=== PATIENT | male | born 2005 | race Caucasian/White ===

== ENCOUNTER 2023-12-26 15:25 | Inpatient (IN) ==
[2023-12-26 19:25] LABS: POC Urine Bilirubin Negative (Negative); POC Urine Blood 250 (Negative); POC Urine Glucose Normal (Normal); POC Urine Ketones Negative (Negative); POC Urine Leukocytes Negative (Negative); POC Urine Nitrite Negative (Negative); POC Urine Protein Trace (Negative); POC Urine Urobilinogen Normal (Normal); POC Urine pH 5 (4.5-7.5)
[2023-12-26 19:36] LABS: Appearance Urine Clear (Clear); Bacteria Urine Automated Negative (Negative); Bilirubin Urine Negative (Negative); Blood Urine 3+ (Negative); Color Urine Orange; Glucose Urine UA Negative (Negative); Ketones Urine Negative (Negative); Leukocyte Esterase Urine Negative (Negative); Nitrite Urine Negative (Negative); Protein Urine 2+ (Negative); RBC Urine Automated 0-4 /hpf (0-4); Specific Gravity Urine 1.014 (1.000-1.030); Urobilinogen Urine Negative (Negative)
--- NOTE | 2023-12-26 19:53 | Emergency Department Note ---
History of Present Illness General Chief complaint: Urinary Symptoms Stated complaint: BLOOD IN URINE Time Seen by Provider: 12/26/23 19:49 History of Present Illness NAME: BINTA KELLY AGE: 18 SEX: M : 2005 ARRIVES VIA: Walk-In INFORMANT: Patient ED PROVIDER(S): ZURI Masterson, Sumeet Diamond MD The patient is a well-appearing 18-year-old male who arrives to the emergency department for evaluation of tea-colored urine. The patient reports he began to notice the discoloration of his urine on Tuesday. He reports that has happened every time he has urinated since then. He states he recently started going to the gym, and states that he was researching symptoms and had hoped it would pass. He denies any pain with urination, he denies any abdominal pain, flank pain, fever, chest pain, shortness of breath, or any other concerning signs or symptoms. He denies use of anticoagulants, bleeding or clotting disorders. Home Medications Medication Instructions Recorded Confirmed Type cholecalciferol (vitamin D3) 50 50 mcg PO HS 12/26/23 12/26/23 History mcg (2,000 unit) tablet ferrous sulfate 325 mg (65 mg 325 mg PO HS 12/26/23 12/26/23 History iron) tablet (iron) Allergies Allergy/AdvReac Type Severity Reaction Status Date / Time peanut Allergy Severe Anaphylaxis Unverified 12/26/23 20:58 mold Allergy Watery Eye Unverified 12/26/23 20:58 pollen extracts Allergy Watery Eye Unverified 12/26/23 20:58 Past Med/Surg History Social History Smoking Status: Never smoker Hx Alcohol Use: No Hx Substance Use: No Preferred Language: [place]guill[place] Communication Ability: Effective Molder Vacuum Required: No Current Living Situation: Other Current Living Situation Comment: with roommates Feels Safe at Home: Yes Assistive Devices: None Physical Exam Vital Signs Vital Signs - 24 hr 12/26/23 15:53 12/26/23 22:16 Temperature 36.7 C Temperature Source Temporal Artery Scan Pulse Rate 88 Pulse Rate [Apical] 67 Pulse Rhythm Regular Pulse Strength Normal Respiratory Rate 18 20 Respiratory Effort / Characteristics Non-Labored Respiratory Depth Normal Respiratory Pattern Regular Blood Pressure 150/97 H Blood Pressure [Left Arm] 138/77 Blood Pressure Mean 114 Blood Pressure Mean [Left Arm] 97 Pulse Oximetry 97 100 Oxygen Delivery Method Room Air Room Air Sepsis Recent Fever Within 48 Hours No Sepsis New/Unexplained Change in Mental Status No Sepsis Action Taken by Nursing No Action Required VITALS: Vitals are noted on the nurse's note and reviewed by myself. Vital signs stable. GENERAL: 18-year-old male, in no acute distress, nondiaphoretic, well-developed well-nourished. SKIN: The skin was without rashes, erythema, edema, or bruising. HEAD: Normocephalic atraumatic. HEART: Regular rate and rhythm without murmurs gallops or rubs. LUNGS: Clear to auscultation bilaterally without wheezes, rales or rhonchi. No retractions or accessory muscle use. ABDOMEN: Positive bowel sounds x 4. Soft, nontender, without masses or organomegaly. Melgoza sign negative. No guarding or rebound tenderness. MUSCULOSKELETAL: No muscle atrophy, erythema, or edema noted. Full range of motion without joint tenderness in all extremities. No tenderness to palpation. Normal gait. Strength 5/5 throughout. NEURO: Patient was alert and oriented to person place and time. No focal neurological deficits. Course Administered Medications Magnesium Sulfate/Dextrose (Magnesium Sulfate / D5w) 1 gm in 100 mls @ 50 mls/hr IV Q2H [facility] Stop: 12/27/23 15:44 Last Admin: 12/27/23 12:14 Dose: 50 mls/hr Documented By: Infusion: 12/27/23 12:14 Dose: Infused Documented By: Admin: 12/27/23 12:12 Dose: 50 mls/hr Documented By: Infusion: 12/27/23 10:29 Dose: Infused Documented By: Admin: 12/27/23 08:29 Dose: 50 mls/hr Documented By: Infusion: 12/27/23 08:02 Dose: Infused Documented By: Admin: 12/27/23 06:02 Dose: 50 mls/hr Documented By: KASSI Lactated Ringer's (Lr) 1,000 mls @ 200 mls/hr IV .Q5H [facility] Stop: 01/26/24 07:29 Last Admin: 12/27/23 08:29 Dose: 200 mls/hr Documented By: LEW Discontinued Medications Sodium Chloride (Nss) 1,000 mls @ 999 mls/hr IV .Q1H1M ONE Stop: 12/26/23 20:53 Last Infusion: 12/26/23 21:25 Dose: Infused Documented By: Admin: 12/26/23 20:05 Dose: 999 mls/hr Documented By: NIGHAT Sodium Chloride (Nss) 1,000 mls @ 999 mls/hr IV .Q1H1M ONE Stop: 12/26/23 22:22 Last Infusion: 12/26/23 22:33 Dose: Infused Documented By: Admin: 12/26/23 21:28 Dose: 999 mls/hr Documented By: ROSALINDA Sodium Chloride (Nss) 1,000 mls @ 999 mls/hr IV .Q1H1M [facility] Stop: 12/26/23 23:06 Last Infusion: 12/26/23 23:51 Dose: Infused Documented By: Admin: 12/26/23 22:17 Dose: 999 mls/hr Documented By: ROSALINDA Sodium Chloride (Nss) 1,000 mls @ 150 mls/hr IV .Q6H40M [facility] Stop: 12/27/23 12:25 Last Infusion: 12/27/23 07:05 Dose: Infused Documented By: Infusion: 12/27/23 06:42 Dose: 0 mls/hr Documented By: Admin: 12/27/23 00:26 Dose: 150 mls/hr Documented By: FRANTZ Potassium Chloride/Sodium Chloride (Normal Saline W/20 Meq Kcl) 20 meq in 1,000 mls @ 150 mls/hr IV .Q6H40M [facility]; Protocol Stop: 01/26/24 05:29 Last Infusion: 12/27/23 09:32 Dose: Infused Documented By: Admin: 12/27/23 06:02 Dose: 150 mls/hr Documented By: KASSI Pantoprazole Sodium (Pantoprazole 40 Mg Tab) 40 mg PO NOW STA Stop: 12/26/23 23:39 Last Admin: 12/27/23 00:26 Dose: 40 mg Documented By: FRANTZ Medical Decision Making Differential Diagnosis Hematuria, dehydration, rhabdomyolysis, cystitis, anticoagulant use, as well as other pathologies Medical Records Attestation: I reviewed the patient's medical records. Home Medications Current Medication List: was personally reviewed by me Laboratory Data Attestation: I reviewed the patient's lab results. Urine shows 2+ protein, 3+ blood, negative urobilinogen. CPK >100,000, transaminitis. 12/27/23 07:05 12/27/23 07:05 Lab Results 12/26/23 12/26/23 Range/Units 19:18 20:02 WBC 5.77 (4.8-10.8) K/ul RBC 5.21 (4.70-6.10) M/uL Hgb 14.6 (14.0-18.0) g/dl Hct 44.3 (42.0-52.0) % MCV 85.0 (80.0-100.0) fL MCH 28.0 (25.0-34.0) pg MCHC 33.0 (32.0-36.0) g/dL RDW Std Deviation 38.1 (36.4-46.3) fL RDW Coeff of Karen 12.4 (11.5-14.5) % Plt Count 177 (130-400) K/uL MPV 12.6 H (9.4-12.4) fL Immature Gran % (Auto) 0.3 % Neut % (Auto) 58.2 % Lymph % (Auto) 26.7 % [place] % (Auto) 9.5 % Eos % (Auto) 5.0 % Baso % (Auto) 0.3 % Neut # (Auto) 3.35 (1.40-6.50) K/uL Lymph # (Auto) 1.54 (1.20-3.40) K/uL [place] # (Auto) 0.55 (0.11-0.59) K/uL Eos # (Auto) 0.29 (0.00-0.50) K/uL Baso # (Auto) 0.02 (0.00-0.20) K/uL Immature Gran # (Auto) 0.02 (0.01-0.20) K/uL Sodium 139 (136-145) mmol/L Potassium 3.5 (3.5-5.1) mmol/L Chloride 103 (98-107) mmol/L Carbon Dioxide 32 (21-32) mmol/L Anion Gap 4 (3-11) BUN 10 (6-23) mg/dl Creatinine 0.92 (0.6-1.4) mg/dl Est Cr Clr Drug Dosing 146.6 ml/min Est GFR ( Amer) 138.3 ml/min Est GFR (Non-Af Amer) 119.3 ml/min BUN/Creatinine Ratio 10.9 (10-20) Glucose 125 H (70-99(Fasting)) mg/dl Calcium 9.4 (8.6-10.3) mg/dl Magnesium < 0.5 L* (1.7-2.4) mg/dl Total Bilirubin 1.1 H (0.2-1.0) mg/dl AST 2432 H (13-39) U/L ALT 423 H (7-52) U/L Alkaline Phosphatase 53 (34-104) U/L Total Creatine Kinase > 435075 H (30-223) U/L Total Protein 7.6 (6.0-8.3) gm/dl Albumin 4.5 (3.4-5.0) gm/dl Globulin 3.1 (2.5-4.0) gm/dl Albumin/Globulin Ratio 1.5 (0.9-2) Urine Color [place] Urine Appearance Clear (Clear) Urine pH 6.0 (4.5-7.5) POC Urine pH 5 (4.5-7.5) Ur Specific [place] 1.014 (1.000-1.030) Urine Protein 2+ H (Negative) POC Urine Protein Trace H (Negative) Urine Glucose (UA) Negative (Negative) POC Ur Glucose (UA) Normal (Normal) Urine Ketones Negative (Negative) POC Urine Ketones Negative (Negative) Urine Blood 3+ H (Negative) POC Urine Blood 250 H (Negative) Urine Nitrite Negative (Negative) POC Urine Nitrite Negative (Negative) Urine Bilirubin Negative (Negative) POC Urine Bilirubin Negative (Negative) Urine Urobilinogen Negative (Negative) POC Urine Urobilinogen Normal (Normal) Ur Leukocyte Esterase Negative (Negative) POC U Leukocyte Esteras Negative (Negative) Urine WBC (Auto) 1-5 (0-5) /hpf Urine RBC (Auto) 0-4 (0-4) /hpf U Hyaline Cast (Auto) 1-5 (0-5) /lpf U Epithel Cells (Auto) 10-20 H (0-5) /lpf Urine Bacteria (Auto) Negative (Negative) Urine Opiates Screen Neg (Neg) Ur Methadone, Qual Neg (Neg) Urine Barbiturates Neg (Neg) Ur Phencyclidine (PCP) Neg (Neg) U Amphetamin/Meth Scrn Neg (Neg) MDMA (Ecstasy) Screen Neg (Neg) U Benzodiazepines Scrn Neg (Neg) Ur Cocaine Metabolite Neg (Neg) U Marijuana (THC) Screen Neg (Neg) MDM Narrative The patient is a well-appearing 18-year-old male who arrives to the emergency department with his family for the above-stated complaint. Urine was obtained in triage which showed hematuria. Upon assessment patient appears well, however due to the hematuria a saline lock was placed, CBC, CMP, CPK were obtained to rule out rhabdomyolysis. CBC was reassuring, CMP shows transaminitis, CPK was >100,000. The patient was provided with 2 L of normal saline, case management was advised of the patient requiring admission. [facility] team took over the care of the patient at this time. Impression & Plan Rhabdomyolysis Discharge Plan Visit Data Chief Complaint: Urinary Symptoms Stated Complaint: BLOOD IN URINE ED Provider: Sumeet Diamond ED Midlevel Provider: Kya Abraham Discharge Problem: Rhabdomyolysis Patient Disposition: Admitted As Inpatient Discharge Instructions Interventions: ED Discharge Assessment Last Done: 12/26/23 23:38 Discharge Problem: Rhabdomyolysis Qualifiers: Rhabdomyolysis type: non-traumatic Qualified Code(s): M62.82 - Rhabdomyolysis
[2023-12-26] MEDS: SODIUM CHLORIDE 0.9% 1,000 ML IV ONE ×2 (20:05→21:28)
[2023-12-26 20:22] LABS: Basophils # (auto) 0.02 K/uL (0.00-0.20); Basophils % (auto) 0.3 %; Eosinophils # (auto) 0.29 K/uL (0.00-0.50); Hematocrit (blood only) 44.3 % (42.0-52.0); Hemoglobin 14.6 g/dl (14.0-18.0); Immature Granulocytes # (auto) 0.02 K/uL (0.01-0.20); Immature Granulocytes % (auto) 0.3 %; Lymphocytes # (auto) 1.54 K/uL (1.20-3.40); Lymphocytes % (auto) 26.7 %; Mean Platelet Volume 12.6 fL (9.4-12.4); Monocytes # (auto) 0.55 K/uL (0.11-0.59); Monocytes % (auto) 9.5 %; Neutrophils # (auto) 3.35 K/uL (1.40-6.50); Neutrophils % (auto) 58.2 %; Platelet Count 177 K/uL (130-400); RDW Coefficient of Variation 12.4 % (11.5-14.5); RDW Standard Deviation 38.1 fL (36.4-46.3); Red Blood Count 5.21 M/uL (4.70-6.10); White Blood Count 5.77 K/ul (4.8-10.8)
[2023-12-26 20:40] LABS: Anion Gap 4 (3-11); BUN Creatinine Ratio 10.9 (10-20); Blood Urea Nitrogen 10 mg/dl (6-23); Calcium 9.4 mg/dl (8.6-10.3); Carbon Dioxide 32 mmol/L (21-32); Chloride 103 mmol/L (98-107); Creatinine Clr Calc Pharmacy 146.6 ml/min; Est GFR (African American) 138.3 ml/min; Est GFR (Non-African American) 119.3 ml/min; Glucose 125 mg/dl (70-99(Fasting)); Potassium 3.5 mmol/L (3.5-5.1); Sodium 139 mmol/L (136-145)
[2023-12-26 20:56] LABS: Alanine Aminotransferase 423 U/L (7-52); Albumin Globulin Ratio 1.5 (0.9-2); Albumin Level 4.5 gm/dl (3.4-5.0); Alkaline Phosphatase 53 U/L (34-104); Aspartate Aminotransferase 2432 U/L (13-39); Bilirubin,Total 1.1 mg/dl (0.2-1.0); Globulin 3.1 gm/dl (2.5-4.0); Total Protein 7.6 gm/dl (6.0-8.3)
[2023-12-26 21:41] LABS: Creatine Kinase > 100000 U/L (30-223)
[2023-12-26] MEDS: SODIUM CHLORIDE 0.9% 1,000 ML IV SCH (22:17)
--- NOTE | 2023-12-26 23:04 | History & Physical Report ---
Date of Service December 26, 2023 Assessment & Plan (1) Rhabdomyolysis: (2) GERD (gastroesophageal reflux disease): (3) Asthma: Plan 18 year old male with PMH of GERD and Asthma here after having tea-colored urine Rhabdomyolysis Strenuous exercises since Tuesday. Myalgias, tea colored urine Admit to Med/Surg CK>100,000 Cr: 0.92 Bilirubin 1.1, AST: 2432, ALT: 423 Denied any alcohol or substance abuse s/p 3 L of NSS in ER NSS 150 ml/hr Urine toxicology Hepatitis panel ordered Mag ordered Coagulation panel ordered CMP am CK AM Continue aggressive hydration GERD Protonix 40 mg daily Code: full code DVT: Low risk Dispo: Med/Surg Diet: Regular History of Present Illness Primary Care Provider: [facility] [employer] 18 year old male with PMH of GERD and Asthma, here after 2 days of tea-colored urine. He noticed the discoloration on Tuesday. He states that started at the gym on Tuesday, he does refers that might had been an strenuous workout. He also refers taking only protein powder on that day. He denied taking any other supplements as pre workout or creatine. He only takes iron and multivitamin. He also refers myalgias, that at first he attributed it to the exercise but by today it was getting worse. Denies any pain with urination, abdominal pain, flank pain, fevers, chest pain, SOB, or any other symptoms. He is adopted, only known PMH is colon cancer. Denied any alcohol use, smoking or any recreational drugs. ED course: Received 3 L of NSS. CK found >100,000. No electrolytes ab normalities. Creatinine at 0.92. Total bilirubin 1.1, AST 2432, ALT 423. UA with no signs of infection, POC urine blood, urine protein. Stable V/S Allergies Allergy/AdvReac Type Severity Reaction Status Date / Time peanut Allergy Severe Anaphylaxis Unverified 12/26/23 20:58 mold Allergy Watery Eye Unverified 12/26/23 20:58 pollen extracts Allergy Watery Eye Unverified 12/26/23 20:58 Home Medications Medication Instructions Recorded Confirmed Type cholecalciferol (vitamin D3) 50 50 mcg PO HS 12/26/23 12/26/23 History mcg (2,000 unit) tablet ferrous sulfate 325 mg (65 mg 325 mg PO HS 12/26/23 12/26/23 History iron) tablet (iron) Past Med/Surg History Social History Smoking Status: Never smoker Preferred Language: [place] Leonean Feels Safe at Home: Yes Review of Systems Review of Systems: All systems reviewed & are unremarkable except as noted in HPI & below Physical Exam Constitutional: WD/WN, vitals as above Respiratory: normal respiratory effort, lungs clear to auscultation Cardiovascular: RRR, no murmur, no edema Gastrointestinal (Abdomen): normal bowel sounds, soft, nontender, no hepatosplenomegaly Musculoskeletal: no cyanosis or clubbing, extremities motor strength 5/5 Results & Data Results & Data Vital Signs (Past 12 Hours) Vital Signs Temp Pulse Pulse Resp BP BP Pulse Ox 12/26/23 22:16 67 20 138/77 100 12/26/23 15:53 36.7 C 88 18 150/97 H 97 O2 Del Method 12/26/23 22:16 Room Air 12/26/23 15:53 Room Air Code Status & VTE Plan VTE Prophylaxis Plan VTE Prophylaxis will be ordered: Yes Supervising Physician Co-Signing Physician Notes Attending addendum: I have physically seen this patient, have supervised the medical residents activities, and agree with the H&P unless as otherwise noted. Assessment and Plan: Rhabdomyolysis- CK greater than 100,000 AST 2432 ALT 423 INR 1.0 Patient reports having taken a protein supplement prior to beginning workout 5 days ago Denies any alcohol or substance abuse Status post 3 L normal saline bolus in the ED Continue NSS + KCl 20 mEq's at 150 MLS per hour Urine drug screen is negative Acute hepatitis panel ordered and pending No tick bite history Daily CBC with differential,chemistry profile and CK levels Hypomagnesemia- Magnesium level less than 0.5 Give 5 g magnesium sulfate IV and then recheck laboratories Resident Activity Tracking Resident Involvement: Resident Care Provided Care Provided: Adult Hospital Medicine
[2023-12-26] MEDS ORDERED: ONDANSETRON INJ 2 MG/ML 2 ML VIAL IV PRN (23:38)
[2023-12-26] MEDS ORDERED: POLYETHYLENE (MIRALAX) 17 GM PACK PO PRN (23:38)
[2023-12-26 23:58] LABS: Prothrombin Time 11.4 Seconds (9.0-12.0)
[2023-12-27] MEDS: SODIUM CHLORIDE 0.9% 1,000 ML IV SCH (00:26)
[2023-12-27] MEDS: PANTOprazole 40 MG TAB PO STA (00:26)
[2023-12-27 03:31] LABS: Magnesium < 0.5 mg/dl (1.7-2.4)
[2023-12-27 04:01] LABS: Amphetamines+Metham, Urine Neg (Neg); Barbiturates, Urine Neg (Neg); Benzodiazepine, Urine Neg (Neg); Cocaine, Urine Neg (Neg); MDMA (Ecstacy), Urine Neg (Neg); Marijuana, Urine Neg (Neg); Methadone, Urine Neg (Neg); Opiate, Urine Neg (Neg); Phencyclidine, Urine Neg (Neg)
--- NOTE | 2023-12-27 05:19 | Billing Data ---
Date of Service December 27, 2023 Coding Level of Care Code 37588 INT INP/OBS CARE
[2023-12-27] MEDS: MAGNESIUM SULFATE / D5W 1 GM/100 ML BAG IV SCH (06:02)
[2023-12-27] MEDS: NSS + 20MEQ KCL 20 MEQ/1,000 ML BAG IV SCH (06:02)
--- NOTE | 2023-12-27 07:23 | Hospitalist Progress Note ---
Date of Service December 27, 2023 Assessment & Plan (1) Rhabdomyolysis: Plan: Rhabdomyolysis Strenuous exercises last week Myalgias, tea colored urine; CK>100,000 down to 80,000 Renal function is stable, improvement in transaminitis Continue robust hydration with lactated Ringer's Urine toxicology negative, patient denies [id number]-[id number]-birfccf muscle building agents or preworkout drinks Hepatitis panel ordered and pending Mag replete 5 gms given (2) GERD (gastroesophageal reflux disease): Plan: remains on protonix 40 mg a day (3) Asthma: Plan Code: full code Admission and Anticipated Discharge Date Admission Date: December 26, 2023 Subjective Patient was seen in company of his family. He had no focal complaints at this time but later in the afternoon developed some muscular pain. He does admit to working out more rigorously than he had in the past. He has no back pain He is urinating frequently. Physical Exam Physical Exam: Patient awake alert appropriate card exam is regular lungs are clear abdomen NABS soft and nontender his muscles are not overtly swollen or tender at this time Results & Data Results & Data Vital Signs (Past 12 Hours) Vital Signs Pulse Pulse Resp BP BP Pulse Ox O2 Del Method 12/27/23 05:00 66 14 115/55 L 98 12/27/23 05:00 Room Air 12/27/23 03:00 67 17 115/55 L 12/26/23 23:48 74 12/26/23 22:16 67 20 138/77 100 Room Air Laboratory Results Reviewed CBC reviewed chemistry reviewed CPK PG Care Time/CCT Total # of Minutes Spent Total Time Spent with Patient: Total time spent is greater than 50% in coordination of care (as documented) at patient's floor/unit and/or counseling patient: Coding Level of Care Code 54325 SUB INP/OBS CARE 2/35MIN Diagnoses Rhabdomyolysis M62.82 GERD (gastroesophageal reflux disease) K21.9 Asthma J45.909
[2023-12-27 07:51] LABS: Hematocrit (blood only) 37.8 % (42.0-52.0); Hemoglobin 12.8 g/dl (14.0-18.0); Mean Corpuscular Hemoglobin 28.6 pg (25.0-34.0); Mean Corpuscular Hgb Conc 33.9 g/dL (32.0-36.0); Mean Corpuscular Volume 84.6 fL (80.0-100.0); Mean Platelet Volume 12.7 fL (9.4-12.4); Platelet Count 151 K/uL (130-400); RDW Coefficient of Variation 12.5 % (11.5-14.5); RDW Standard Deviation 38.2 fL (36.4-46.3); Red Blood Count 4.47 M/uL (4.70-6.10); White Blood Count 4.86 K/ul (4.8-10.8)
[2023-12-27 08:22] LABS: BUN Creatinine Ratio 8.5 (10-20); Calcium 8.5 mg/dl (8.6-10.3); Creatinine Clr Calc Pharmacy 164.4 ml/min; Est GFR (African American) 147.5 ml/min; Est GFR (Non-African American) 127.3 ml/min
[2023-12-27] MEDS: LACTATED RINGER'S 1,000 ML IV SCH (08:29)
[2023-12-27 09:17] LABS: Albumin Globulin Ratio 1.7 (0.9-2); Albumin Level 3.8 gm/dl (3.4-5.0); Globulin 2.3 gm/dl (2.5-4.0); Magnesium 2.2 mg/dl (1.7-2.4); Phosphorus 3.8 mg/dl (2.5-4.9); Total Protein 6.1 gm/dl (6.0-8.3)
[2023-12-27] MEDS ORDERED: traMADol HCL 50 MG TABLET PO PRN (16:46)
[2023-12-27] MEDS ORDERED: KETOROLAC TROMETHAMINE 15 MG/ML VIAL IV PRN (16:46)
[2023-12-27] MEDS: ACETAMINOPHEN 500 MG TAB PO PRN (17:12)
[2023-12-28 11:12] LABS: HBSAG NON-REACTIVE (NON-REACTIVE); Hepatitis A Antibody IgM NON-REACTIVE (NON-REACTIVE); Hepatitis B Core Antibody IgM NON-REACTIVE (NON-REACTIVE)
--- NOTE | 2023-12-28 19:41 | Discharge Summary ---
Date of Service December 28, 2023 Admission HPI Per Admitting Provider 18 year old male with PMH of GERD and Asthma, here after 2 days of tea-colored urine. He noticed the discoloration on Tuesday. He states that started at the gym on Tuesday, he does refers that might had been an strenuous workout. He also refers taking only protein powder on that day. He denied taking any other supplements as pre workout or creatine. He only takes iron and multivitamin. He also refers myalgias, that at first he attributed it to the exercise but by today it was getting worse. Denies any pain with urination, abdominal pain, flank pain, fevers, chest pain, SOB, or any other symptoms. He is adopted, only known PMH is colon cancer. Denied any alcohol use, smoking or any recreational drugs. ED course: Received 3 L of NSS. CK found >100,000. No electrolytes abnormalities. Creatinine at 0.92. Total bilirubin 1.1, AST 2432, ALT 423. UA with no signs of infection, POC urine blood, urine protein. Stable V/S Principal Diagnosis Rhabdomyolysis improving Discharge Exam Patient without focal muscle pain or swelling. Urine has become clear Discharge Data Allergies Allergy/AdvReac Type Severity Reaction Status Date / Time peanut Allergy Severe Anaphylaxis Unverified 12/26/23 20:58 mold Allergy Watery Eye Unverified 12/26/23 20:58 pollen extracts Allergy Watery Eye Unverified 12/26/23 20:58 Consultations 12/26/23 22:06 ED Decision to Admit Stat Hospital Course (1) Rhabdomyolysis: Rhabdomyolysis Strenuous exercises l week prior to admission Myalgias, tea colored urine; CK>100,000 down to 59,100 Patient able to drink liquids at home mother will take him back to their hometown to see their family doctor on Tuesday. Laboratory slip given for CPK and renal function on Tuesday. Renal function is stable, improvement in transaminitis Continue robust hydration patient understands must drink to urinate at least every 1-2 hours at home Urine toxicology negative, patient denies qfzb-aqk-esphwcu muscle building agents or preworkout drinks Hepatitis panel ordered and pending Mag replete 5 gms given (2) GERD (gastroesophageal reflux disease): remains on protonix 40 mg a day (3) Asthma: Plan Code: full code Total Time Total Time Spent Total Time Spent (In Minutes): It required less than 30 minutes to prepare this patient for discharge. Discharge Plan Discharge Items Patient Disposition: Home - Self-Care Reason For Visit: RHABDOMY Discharge Diagnosis: Rhabdomyolysis Activity: Per Instructions section Activity Comment: rest thru tuesday, no intentional exercise for one week, then ok to return Non-emergency contact: Primary Care Provider Call non-emergency contact if: your symptoms worsen Follow-up/Referrals: [facility] [Primary Care Provider] - (f[facility]llow up with [facility]) Diet: Regular Ambulatory Orders: CK Isoenzymes with Total CK (Routine) Location: None Selected Ordered By: Amando Walton Chemistry/Renal Profile (Routine) Timeframe: 2 Days Location: Determined by Patient Ordered By: Amando Walton Addtl Attending Provider Instructions: When you have rhabdomyolysis (say "yey-rel-vb-AH-trevor-anthony"), dying muscle cells cause toxins to build up in the blood. If not treated, it can cause life- threatening damage to the body's organs. It can be caused by many things, such as severe muscle injury, some medicines (like statins), the flu, and certain blood infections. Symptoms may include weak muscles, pain, stiffness, fever, and nausea. Your urine may also be dark. You will get treatment in the hospital. If possible, the doctor will stop the cause of muscle cell . The doctor will take steps to protect your organs. You may have to stop taking certain medicines if they are the cause of the problem. You will also get treatment to help the kidneys remove the toxins from your blood. This includes plenty of fluids. You may get fluids through a vein (by I.V.). You may also need dialysis. Follow-up care is a martínez part of your treatment and safety.Be sure to make and go to all appointments, and call your doctor if you are having problems. It's also a good idea to know your test results and keep a list of the medicines you take. How can you care for yourself at home? * Take pain medicines exactly as directed. * If the doctor gave you a prescription medicine for pain, take it as prescribed. * If you are not taking a prescription pain medicine, ask your doctor if you can take an hcbs-okl-pewrtgs medicine. * Talk to your doctor about whether you need to stop taking any medicines. Follow your doctor's instructions about stopping medicines. * Drink plenty of fluids. If you have kidney, heart, or liver disease and have to limit fluids, talk with your doctor before you increase the amount of fluids you drink. When should you call for help? Call your doctor nowor seek immediate medical care if: * You have new or worse muscle pain. * You have less urine than normal or no urine. * You have new swelling in your arms or feet. * You have blood in your urine. * You have darkened urine. Watch closely for changes in your health, and be sure to contact your doctor if you do not get better as expected. Addtl Home Health Clinician Provider Instructions: Drink enough fluids to urinate at least every 2 hours Pending Studies at Discharge: No Stand-Alone Forms: [email or web address], Pain - Opioid Pain Management, Work/School Release, Smoking Cessation Medications and DC Order Prescriptions: Continued ferrous sulfate [iron] 325 mg (65 mg iron) Tablet 325 mg PO HS cholecalciferol (vitamin D3) 50 mcg (2,000 unit) Tablet 50 mcg PO HS Discharge Orders: Discharge Order (Routine); Ordered 12/28/23 Ordered By: Amando Urbano/Other Patient Handouts: Rhabdomyolysis Admission Data Admit Date/Time: 12/26/23 22:45 Attending Provider: Amando Walton Admit Provider: Carol Steven Primary Care Provider: [facility] Other Providers: Jimmy Ricci Other Interventions: Discharge Summary Assessment (RN) Last Done: 12/28/23 15:50 Coding Level of Care Code 35310 IN/OBS DISCH 30 MIN/LESS Diagnoses Rhabdomyolysis M62.82 Rhabdomyolysis type: non-traumatic GERD (gastroesophageal reflux disease) K21.9 Asthma J45.909
== END 2023-12-28 16:37 | disposition home or self-care (01) | DRG 558 ==
LOC: ED 15:25 → EDINP 22:45 → SUATTDRO 22:45 → 3W 23:38
DX: J45.909 Unspecified asthma, uncomplicated; Z91.010 Allergy to peanuts; Z91.048 Other nonmedicinal substance allergy status; Z85.038 Personal history of other malignant neoplasm of large intestine; M62.82 Rhabdomyolysis; E83.42 Hypomagnesemia; K21.9 Gastro-esophageal reflux disease without esophagitis